=== PATIENT | female | born 1965 | race Hispanic/Latino ===

== ENCOUNTER 2016-11-23 01:08 | Emergency (ER) | payer SELFPAY ==
--- NOTE | 2016-11-23 03:26 | Cat Scan Report ---
FINAL REPORT PROCEDURE: CT LUMBAR SPINE WO CON TECHNIQUE: Computerized axial tomography of the lumbar spine was performed from T12 to the sacrum without contrast material. HISTORY: back pain , rt leg pain COMPARISON: No prior studies are available for comparison. FINDINGS: There are no compression fractures. There is grade 1 anterior spondylolisthesis of L4 over L5 with bilateral facet hypertrophy. There is moderate loss of disc height and diffuse disc bulging causing mild spinal stenosis and severe bilateral lateral recess stenosis. There is severe bilateral foraminal stenosis. There is mild loss of disc height and diffuse disc bulging. There is no significant spinal stenosis. Facet joints are intact. There is mild bilateral foraminal stenosis. Sacrum and sacroiliac joints are intact. The paraspinal soft tissues are unremarkable. IMPRESSION: There are degenerative changes as described. There is no fracture. At L4-5 there is severe bilateral lateral recess stenosis and foraminal stenosis.
--- NOTE | 2016-11-23 04:14 | XRay Report ---
FINAL REPORT PROCEDURE: XR HIP 2-3V RT TECHNIQUE: RIGHT hip radiographs, AP and lateral views. HISTORY: pain, send for report/RT HIP COMPARISON: No prior studies are available for comparison. FINDINGS: Fracture (s) and/or Dislocation(s): None . Joint space(s): Normal . Soft tissues: Normal . Bone mineralization: Normal . Foreign bodies: None . IMPRESSION: Normal Examination.
[2016-11-23] MEDS ORDERED: NORCO 5/325 PO ONE ×2 (05:03→05:05)
--- NOTE | 2016-11-23 05:03 | Emergency Department Report ---
HPI - General Chief Complaint: Extremity Injury, Lower Time Seen by Provider: 11/23/16 04:42 - HPI HPI: 51-year-old female past medical history degenerative disc disease presents with complaint of 2 weeks of lower back pain. Patient states that she has multiple herniated disks and suffers from sciatica. Patient is fully ambulatory denies any bladder or bowel incontinence denies any saddle paresthesias primarily complaining of pain in her lower back. Some occasional radiation into her right buttock and right upper thigh. Patient denies any paralysis. Is voiding urine and feces upon command. Fully ambulatory during my clinical interview. Denies any recent trauma no falls. Denies any dysuria denies any flank pain denies any increased urinary frequency or foul-smelling urine. States her complaints is classic of her chronic lower back pain. States she has not followed up with orthopedics or pain management because of insurance issues. ED Past Medical Hx - Past Medical History Previous Medical History?: Yes Additional medical history: Degenerative Disk Disease x 1 year. Rt Knee Inj x 15 years - Surgical History Past Surgical History?: Yes Hx Cholecystectomy: Yes - Social History Smoking Status: Current Every Day Smoker Substance Use Type: None - Medications Home Medications: Home Medications Medication Instructions Recorded Confirmed Last Taken Type HYDROcodone/APAP 5-325 [[place] 1 each PO Q6HR PRN #10 tablet 11/23/16 Unknown Rx 5/325] Naproxen [Naprosyn TAB] 375 mg PO BID PRN #20 tablet 11/23/16 Unknown Rx ED Review of Systems ROS: Stated complaint: BACK/R KNEE/LEG/HIP PAIN Other details as noted in HPI Constitutional: denies: chills, fever Eyes: denies: eye pain, eye discharge, vision change ENT: denies: ear pain, throat pain Respiratory: denies: cough, shortness of breath, wheezing Cardiovascular: denies: chest pain, palpitations Endocrine: no symptoms reported Gastrointestinal: denies: abdominal pain, nausea, diarrhea Genitourinary: denies: urgency, dysuria, discharge Musculoskeletal: back pain (chronic lower back pain and sciatica). denies: joint swelling, arthralgia Skin: denies: rash, lesions Neurological: denies: headache, weakness, paresthesias Psychiatric: denies: anxiety, depression Hematological/Lymphatic: denies: easy bleeding, easy bruising Physical Exam - Physical Exam Vital Signs: Vital Signs 11/23/16 01:15 Temperature 98 F Pulse Rate 75 Respiratory 20 Rate Blood Pressure 155/103 [Right] O2 Sat by Pulse 100 Oximetry General: General: Well appearing, well nourished, in no distress. Oriented x 3, normal mood and affect. Ambulating without difficulty. Head: Normocephalic, atraumatic, no visible or palpable masses, depressions, or scaring. Eyes: Visual acuity intact, conjunctiva clear, sclera non-icteric, EOM intact, PERRLA Neck: Supple, without lesions, bruits, or adenopathy, thyroid non-enlarged and non-tender Heart: No cardiomegaly or thrills; regular rate and rhythm, no murmur or gallop Lungs: Clear to auscultationb/l Abdomen: Bowel sounds normal, no tenderness, organomegaly, masses, or hernia Back: NO MIDLINE TENDERNESS. Spine normal without deformity or tenderness, no CVA tenderness Rectal: Normal sphincter tone Extremities: No amputations or deformities, cyanosis, edema or varicosities, peripheral pulses intact Musculoskeletal: Normal gait and station. + SLR test right leg 30degrees, negative left leg Neurologic: CN 2-12 normal. Sensation to pain, touch, and proprioception normal. DTRs normal in upper and lower extremities. No pathologic reflexes. distal knee jerk and ankle reflex intact b/l ED Course Vital Signs 11/23/16 01:15 Temperature 98 F Pulse Rate 75 Respiratory 20 Rate Blood Pressure 155/103 [Right] O2 Sat by Pulse 100 Oximetry ED Medical Decision Making - Medical Decision Making a/p: Chronic lower back pain, sciatica, lumbar radiculopathy 1- no clinical signs of cord compression, rectal tone intact, distal reflexes intact, strength 5 out of 5 all extremities including lower extremities. Patient is fully ambulatory. No clinical signs of cauda equina 2- short course of analgesics and referral to orthopedics and primary care 3- CT ordered by triage consistent with degenerative disc disease in the L- spine region, hip x-ray unremarkable Critical care attestation.: If time is entered above; I have spent that time in minutes in the direct care of this critically ill patient, excluding procedure time. ED Disposition Clinical Impression: Lumbar radiculopathy Sciatica Qualifiers: Laterality: right Qualified Code(s): M54.31 - Sciatica, right side Disposition: DC-01 TO HOME OR SELFCARE Is pt being admited?: No Does the pt Need Aspirin: No Condition: Stable Instructions: Sciatica (ED), Lumbar Radiculopathy (ED), Degenerative Disc Disease (ED) Additional Instructions: [email or web address] Prescriptions: HYDROcodone/APAP 5-325 [[place] 5/325] 1 each PO Q6HR PRN #10 tablet PRN Reason: Pain Naproxen [Naprosyn TAB] 375 mg PO BID PRN #20 tablet PRN Reason: Pain Referrals: JOSE ELIAS GONZALEZ MD [Staff Physician] - 3-[address] [facility] [Provider Group] - 3-5 Days Forms: Work/School Release Form(ED) Time of Disposition: 05:45
[2016-11-23] MEDS ORDERED: NORCO 10/325 PO ONE (05:05)
[2016-11-23] MEDS ORDERED: ZOFRAN ODT PO ONE (05:06)
[2016-11-23 06:13] VITALS: BP 154/94
== END 2016-11-23 06:21 | disposition home or self-care (01) ==
LOC: ED 01:08
DX: M54.16 Radiculopathy, lumbar region (principal); M54.31 Sciatica, right side; F17.200 Nicotine dependence, unspecified, uncomplicated
CPT/HCPCS: 72131; 99284; Q0162

== ENCOUNTER 2017-01-13 00:14 | Inpatient (IN) | payer OTHER ==
[2017-01-13] MEDS ORDERED: NACL 0.9% 1000 ML 1,000 ML ONE (01:49)
[2017-01-13] MEDS ORDERED: NACL 0.9% 1000 ML 1,000 ML IV ONE ×4 (01:49→03:54)
[2017-01-13 02:07] LABS: Urine Drugs of Abuse Note Disclamer
[2017-01-13 02:18] LABS: Bilirubin,Urine NEG (Negative); Blood,Urine SM (Negative); Ketones,Urine NEG (Negative); Leukocyte Esterase,Urine NEG (Negative); Nitrite,Urine NEG (Negative); Protein,Urine <15 mg/dL mg/dL (Negative); RBC,Urine < 1.0 /HPF (0.0-6.0); Urobilinogen,Urine < 2.0 mg/dL (<2.0); WBC,Urine < 1.0 /HPF (0.0-6.0)
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
[2017-01-13 03:42] LABS: Hemoglobin 12.1 gm/dl (10.1-14.3); Mean Corpuscular HGB Conc 34 % (30-34); Mean Corpuscular Hemoglobin 31 pg (28-32); Mean Corpuscular Volume 91 fl (79-97); Platelet Count 231 K/mm3 (140-440); Red Blood Count 3.95 M/mm3 (3.65-5.03); Red Cell Distribution Width 13.2 % (13.2-15.2); White Blood Count 4.5 K/mm3 (4.5-11.0)
[2017-01-13 04:02] LABS: Creatine Kinase MB 1.8 ng/mL (0.0-4.0)
[2017-01-13 04:03] LABS: Alanine Aminotransferase 11 units/L (7-56); Albumin 3.7 g/dL (3.9-5); Albumin/Globulin Ratio 1.8 %; Alkaline Phosphatase 46 units/L (35-129); Anion Gap 21 mmol/L; Blood Urea Nitrogen 3 mg/dL (7-17); Calcium 8.1 mg/dL (8.4-10.2); Carbon Dioxide 20 mmol/L (22-30); Chloride 108.2 mmol/L (98-107); Creatine Kinase 76 units/L (30-135); Glucose 71 mg/dL (65-100); Potassium 3.6 mmol/L (3.6-5.0); Sodium 146 mmol/L (137-145); Total Protein 5.8 g/dL (6.3-8.2)
[2017-01-13 04:15] LABS: Anisocytosis 1+; Basophils % (Manual) 0 % (0.0-1.8); Blastocytes % (Manual) 0 %
[2017-01-13 04:16] LABS: Diff Status Complete
--- NOTE | 2017-01-13 06:23 | Cat Scan Report ---
FINAL REPORT PROCEDURE: CT HEAD/BRAIN WO CON TECHNIQUE: Computerized tomography of the head was performed without contrast material. HISTORY: ams COMPARISON: No prior studies are available for comparison. FINDINGS: Skull and scalp: Normal. Paranasal sinuses: Normal. Ventricles and subarachnoid spaces: Normal. Cerebrum: No evidence of hemorrhage, acute infarction or mass . Cerebellum and brainstem: No evidence of hemorrhage, acute infarction or mass. Vasculature: Normal. Comments: None. IMPRESSION: Normal Examination
--- NOTE | 2017-01-13 07:13 | Admit Criteria Form ---
Admission Criteria Documentation: SUBSTANCE ABUSE Clinical Indications for Admission to Inpatient Care (Place 'X' for any and all applicable criteria): Admission is indicated due to ANY ONE of the following(1)(2)(3)(4)(5): [ ]I. Delirium due to alcohol or sedative A withdrawal B ( Also use Delirium Criteria as appropriate)1,6,7 [ ]II. Alcohol or sedative withdrawal with high-risk indicator as manifested by ALL of the following1,3,6,7 [ ]a) Signs of withdrawal as indicated by ANY ONE of the following: [ ]i) Heart rate greater than 100 beats per minute [ ]ii) Nausea or vomiting [ ]iii) Other physical signs of alcohol or sedative withdrawal [ ]iv) Tremor [ ](v) Increased perspiration [ ]b) Elevated risk due to a historical or comorbid factor as indicated by ANY ONE of the following: [ ]i) History of delirium due to alcohol or sedative withdrawal [ ]ii) History of repetitive seizures due to alcohol or sedative withdrawal C [ ]iii) Intrinsic seizure disorder (epilepsy) [ ]iv) [ ]v) Comorbid medical condition that can be dangerously destabilized by alcohol or sedative withdrawal (eg, severe cardiac disease) [ ]III. Severe alcohol or sedative withdrawal that is unmanageable at lower level of care, as manifested by ALL of the following1,3,6,7 [ ]a) Marked signs of withdrawal as indicated by ANY ONE of the following: [ ]i) Heart rate greater than 120 beats per minute [ ]ii) Vomiting [ ]iii) Grossly visible tremor [ ]iv) Profuse perspiration [ ]v) Temperature greater than 38.3 degrees C (101 degrees F) [ ]vi) Other marked physical signs of alcohol or sedative withdrawal [ ]b) Signs of withdrawal which require inpatient treatment as indicated by ANY ONE of the following: [ ]i) Inadequate response to pharmacotherapy in emergency department or other appropriate lower level of care [ ]ii) Lower level of care not feasible or appropriate (eg, unavailable or inappropriate to patient condition or treatment history) [ ]IV. Severely complicated opioid withdrawal that requires [id number] care as manifested by ALL of the following 1,4,7,11 [ ]a) Vomiting or diarrhea due to opioid withdrawal [ ]b) Marked dehydration or electrolyte abnormality that cannot be corrected (to near normal) in an emergency department or other ambulatory setting (eg, serum K<2.5 mEq/L , serum Na <130 mEq/L [X]V. Acute toxicity or instability from substance use requiring inpatient care (eg, altered mental status, respiratory depression) that has had inadequate response to, or is judged inappropriate for, treatment at lower level of care (eg, emergency department, observation care) [ ]. Other inpatient medical or psychiatric care is needed due to risk or comorbidity as indicated by ALL of the following(18): [ ]a) Treatment is needed because of patient risk due to ANY ONE of the following: [ ]i) Medical condition (eg, severe cardiac disease) that requires 24-hour monitoring and treatment due to danger of destabilization by alcohol or sedative withdrawal is present [ ]ii) Imminent danger to self is present due to ANY ONE of the following(19)(20)(21): [ ]1) Imminent risk for recurrence of Suicide attempt or act of serious Harm to self is present as indicated by ALL of the following: [ ]A. There has been very recent Suicide attempt or deliberate act of serious Harm to self. [ ]B. There has not been Sufficient relief of the factors that precipitated the attempt or act. [ ]2) Current plan for suicide or serious Harm to self is present. [ ]3) Command auditory hallucinations for suicide or serious Harm to self are present. [ ]4) Patient has persistent Thoughts of suicide or serious Harm to self that cannot be adequately monitored at lower level of care due to ANY ONE of the following[E]: [ ]A. Insufficient behavioral care is available to meet patient needs (such as required provider or lower level facility is not available). [ ]B. Patient characteristics such as high impulsivity or unreliability are present. [ ]C. Environment does not support recovery. [ ]D. Ready access to lethal means [ ]iii) Imminent danger to others is present due to ANY ONE of the following(19)(23)(24): [ ]1) Imminent risk for recurrence of attempt to seriously Harm another is present as indicated by ALL of the following: [ ]A. There has been very recent attempt to seriously Harm another. [ ]B. There has not been Sufficient relief of factors that precipitated the attempt or act. [ ]2) Current plan for homicide or serious Harm to another is present. [ ]3) Command auditory hallucinations or paranoid delusions contributing to risk for homicide or serious Harm to another are present. [ ]4) Patient has persistent thoughts of homicide or serious Harm to another that cannot be adequately monitored at lower level of care because of ANY ONE of the following[E]: [ ]A. Insufficient behavioral care is available to meet patient needs (such as required provider or lower level facility is not available). [ ]B. High impulsivity or unreliability is present. [ ]C. Environment does not support recovery. [ ]D. Ready access to lethal means [ ]iv) Severe dysfunction in daily living related to substance use disorder as indicated by ANY ONE of the following(33): [ ]a) Extreme deterioration in social interactions (eg , threatening behaviors with little or no provocation) [ ]b) Complete withdrawal from all social interactions [ ]c) Complete neglect of self-care with associated impairment in physical status [ ]d) Extreme disruption in vegetative function (eg, life-sustaining functions such as eating) [ ]e) Complete inability to maintain any appropriate aspect of personal responsibility in any adult roles (eg, occupational, parental ) [ ]v) Other emotional, behavioral, or cognitive symptoms of sufficient severity to preclude ability to engage in recovery without 24-hour monitoring and treatment are present. [ ]vi) Patient requires monitoring due to substance use in combination with medical, psychiatric, or environmental factors that prevent adequate management at lower level of care as indicated by ALL of the following: [ ]1) Significant substance use effects, medical conditions, or psychiatric comorbidities are present as indicated by ANY ONE of the following [ ]A. Substance toxicity or withdrawal requires medical monitoring. [ ]B. Medical comorbidity requires medical monitoring for destabilization due to alcohol or sedative withdrawal. [ ]C. Emotional, behavioral, or cognitive symptoms of sufficient severity to limit or preclude ability to engage in treatment are present. [ ]2) Conditions, barriers, or environmental factors preventing treatment at lower level of care are present as indicated by ANY ONE of the following: [ ]A. Psychiatric comorbidity or opposition to treatment requires 24-hour setting to ensure adherence with medical treatment or adequate motivating interventions. [ ]B. Severe behavioral problems (eg, escalating relapse behaviors, acute psychiatric or substance use crisis, inability to recognize signs and symptoms of relapse ) require 24-hour setting for relapse prevention.[F] [ ]C. Living environment outside of 24-hour setting prevents recovery (eg, abuse, victimization, patient inability to cope). [ ]b Treatment situation and needs are appropriate for inpatient level ( instead of using lower level of care) as indicated by ANY ONE of the following( 25)(26)(27): [ ]i) Patient is unwilling to participate voluntarily and requires treatment (eg, legal commitment) in involuntary unit.(23) [ ]ii) Voluntary treatment at lower level is not feasible (eg, lower level care unavailable or inappropriate for patient condition). [ ]iii) Physical restraint, seclusion, or other involuntary control is needed (eg, actively violent patient for whom treatment in an involuntary unit is deemed necessary in accord with applicable medical and legal criteria).(23) [ ]iv) [id number] medical or nursing care to address symptoms and initiate interventions is required; specific need is identified. Extended stay beyond goal length of stay may be needed for: [ ]a) Onset of delirium [ ]b) Recurrent seizures [ ]c) Persistent severe alcohol or sedative withdrawal [ ]d) Persistent dangerous behavior The original [facility] content created by [employer] has been revised. The portions of the content which have been revised are identified through the use of italic text or in bold, and [facility] has neither reviewed nor approved the modified material. All other unmodified content is copyright [facility]. Please see references footnoted in the original [facility] [employer] edition 2016 Admission Criteria Met: Yes
--- NOTE | 2017-01-13 08:44 | History and Physical Report ---
History of Present Illness Date of examination: 01/13/17 Date of admission: 01/13/17 04:40 Chief complaint: Alerted mental status History of present illness: Patient 51-year-old female with past medical history degenerative disc disease presents to the hospital after being found crawling around in the [place] covered in blood. Patient alert but confused, therefore unable to obtain history. Patient admits to use of unprescribed Xanax and Trazodone. Also admits to use of alcohol with combination of those drugs. History obtained from ER physician Past History Past Medical History: other (unable to assess) Past Surgical History: Other (JING (patient altered mental status)) Family history: other (JING (patient altered mental status)) Medications and Allergies Allergies Allergy/AdvReac Type Severity Reaction Status Date / Time No Known Allergies Allergy Verified 01/13/17 01:18 Home Medications Medication Instructions Recorded Confirmed Last Taken Type HYDROcodone/APAP 5-325 [[place] 1 each PO Q6HR PRN #10 tablet 11/23/16 01/13/17 Unknown Rx 5/325] Naproxen [Naprosyn TAB] 375 mg PO BID PRN #20 tablet 11/23/16 01/13/17 Unknown Rx Review of Systems ROS unobtainable: due to mental status (JING (patient altered mental status)) Exam - Constitutional Vitals: Temp Pulse Resp BP Pulse Ox 70 13 93/60 98 01/13/17 06:30 01/13/17 06:30 01/13/17 06:30 01/13/17 06:30 General appearance: Present: no acute distress, other (alert but confused ) - EENT Eyes: Present: PERRL ENT: hearing intact - Neck Neck: Present: supple - Respiratory Respiratory effort: normal Respiratory: bilateral: CTA - Cardiovascular Rhythm: regular Heart Sounds: Present: S1 & S2 Peripheral Pulses: within normal limits - Abdominal General gastrointestinal: Present: soft, non-tender Female genitourinary: Present: deferred - Rectal Rectal Exam: deferred - Integumentary Integumentary: Present: clear, warm, dry - Musculoskeletal Musculoskeletal: strength equal bilaterally - Neurologic Neurologic: CNII-XII intact - Allied Health Allied health notes reviewed: nursing Results - Labs CBC & Chem 7: 01/14/17 05:22 01/14/17 05:22 Labs: Laboratory Last Values WBC 4.5 K/mm3 (4.5-11.0) 01/13/17 02:57 RBC 3.95 M/mm3 (3.65-5.03) 01/13/17 02:57 Hgb 12.1 gm/dl (10.1-14.3) 01/13/17 02:57 Hct 36.0 % (30.3-42.9) 01/13/17 02:57 MCV 91 fl (79-97) 01/13/17 02:57 MCH 31 pg (28-32) 01/13/17 02:57 MCHC 34 % (30-34) 01/13/17 02:57 RDW 13.2 % (13.2-15.2) 01/13/17 02:57 Plt Count 231 K/mm3 (140-440) 01/13/17 02:57 Lymph % (Auto) Transfer Professor 01/13/17 02:57 Add Manual Diff Complete 01/13/17 02:57 Total Counted 100 01/13/17 02:57 Seg Neutrophils % Transfer Professor 01/13/17 02:57 Seg Neuts % (Manual) 34.0 % (40.0-70.0) L 01/13/17 02:57 Band Neutrophils % 8.0 % 01/13/17 02:57 Lymphocytes % (Manual) 54.0 % (13.4-35.0) H 01/13/17 02:57 Reactive Lymphs % (Man) 0 % 01/13/17 02:57 Monocytes % (Manual) 2.0 % (0.0-7.3) 01/13/17 02:57 Eosinophils % (Manual) 2.0 % (0.0-4.3) 01/13/17 02:57 Basophils % (Manual) 0 % (0.0-1.8) 01/13/17 02:57 Metamyelocytes % 0 % 01/13/17 02:57 Myelocytes % 0 % 01/13/17 02:57 Promyelocytes % 0 % 01/13/17 02:57 Blast Cells % 0 % 01/13/17 02:57 Nucleated RBC % Not Reportable 01/13/17 02:57 Seg Neutrophils # Man 1.5 K/mm3 (1.8-7.7) L 01/13/17 02:57 Band Neutrophils # 0.4 K/mm3 01/13/17 02:57 Lymphocytes # (Manual) 2.4 K/mm3 (1.2-5.4) 01/13/17 02:57 Abs React Lymphs (Man) 0.0 K/mm3 01/13/17 02:57 Monocytes # (Manual) 0.1 K/mm3 (0.0-0.8) 01/13/17 02:57 Eosinophils # (Manual) 0.1 K/mm3 (0.0-0.4) 01/13/17 02:57 Basophils # (Manual) 0.0 K/mm3 (0.0-0.1) 01/13/17 02:57 Metamyelocytes # 0.0 K/mm3 01/13/17 02:57 Myelocytes # 0.0 K/mm3 01/13/17 02:57 Promyelocytes # 0.0 K/mm3 01/13/17 02:57 Blast Cells # 0.0 K/mm3 01/13/17 02:57 WBC Morphology Not Reportable 01/13/17 02:57 Hypersegmented Neuts Not Reportable 01/13/17 02:57 Hyposegmented Neuts Not Reportable 01/13/17 02:57 Hypogranular Neuts Not Reportable 01/13/17 02:57 Smudge Cells Not Reportable 01/13/17 02:57 Toxic Granulation Not Reportable 01/13/17 02:57 Toxic Vacuolation Not Reportable 01/13/17 02:57 Dohle Bodies Not Reportable 01/13/17 02:57 Pelger-Huet Anomaly Not Reportable 01/13/17 02:57 Valerie Rods Not Reportable 01/13/17 02:57 Platelet Estimate Appears normal 01/13/17 02:57 Clumped Platelets Not Reportable 01/13/17 02:57 Plt Clumps, EDTA Not Reportable 01/13/17 02:57 Large Platelets Not Reportable 01/13/17 02:57 Giant Platelets Not Reportable 01/13/17 02:57 Platelet Satelliting Not Reportable 01/13/17 02:57 Plt Morphology Comment Not Reportable 01/13/17 02:57 RBC Morphology Not Reportable 01/13/17 02:57 Dimorphic RBCs Not Reportable 01/13/17 02:57 Polychromasia Not Reportable 01/13/17 02:57 Hypochromasia Not Reportable 01/13/17 02:57 Poikilocytosis Not Reportable 01/13/17 02:57 Anisocytosis 1+ 01/13/17 02:57 Microcytosis Not Reportable 01/13/17 02:57 Macrocytosis Not Reportable 01/13/17 02:57 Spherocytes Not Reportable 01/13/17 02:57 Pappenheimer Bodies Not Reportable 01/13/17 02:57 Sickle Cells Not Reportable 01/13/17 02:57 Target Cells Not Reportable 01/13/17 02:57 Tear Drop Cells Not Reportable 01/13/17 02:57 Ovalocytes Not Reportable 01/13/17 02:57 Helmet Cells Not Reportable 01/13/17 02:57 [place] Bodies Not Reportable 01/13/17 02:57 [place] Rings Not Reportable 01/13/17 02:57 Wan Cells Not Reportable 01/13/17 02:57 Bite Cells Not Reportable 01/13/17 02:57 Crenated Cell Not Reportable 01/13/17 02:57 Elliptocytes Not Reportable 01/13/17 02:57 Acanthocytes (Spur) Not Reportable 01/13/17 02:57 Rouleaux Not Reportable 01/13/17 02:57 Hemoglobin C Crystals Not Reportable 01/13/17 02:57 Schistocytes Not Reportable 01/13/17 02:57 Malaria parasites Not Reportable 01/13/17 02:57 [place] Bodies Not Reportable 01/13/17 02:57 Hem Pathologist Commnt No 01/13/17 02:57 VBG pH 7.322 (7.320-7.420) 01/13/17 02:57 Sodium 146 mmol/L (137-145) H 01/13/17 02:57 Potassium 3.6 mmol/L (3.6-5.0) 01/13/17 02:57 Chloride 108.2 mmol/L (98-107) H 01/13/17 02:57 Carbon Dioxide 20 mmol/L (22-30) L 01/13/17 02:57 Anion Gap 21 mmol/L 01/13/17 02:57 BUN 3 mg/dL (7-17) L 01/13/17 02:57 Creatinine 0.5 mg/dL (0.7-1.2) L 01/13/17 02:57 Estimated GFR > 60 ml/min 01/13/17 02:57 BUN/Creatinine Ratio 6.00 % 01/13/17 02:57 Glucose 71 mg/dL (65-100) 01/13/17 02:57 Lactic Acid 3.50 mmol/L (0.7-2.0) H* 01/13/17 02:57 Calcium 8.1 mg/dL (8.4-10.2) L 01/13/17 02:57 Magnesium 1.70 mg/dL (1.7-2.3) 01/13/17 02:57 Total Bilirubin 0.30 mg/dL (0.1-1.2) 01/13/17 02:57 AST 12 units/L (5-40) 01/13/17 02:57 ALT 11 units/L (7-56) 01/13/17 02:57 Alkaline Phosphatase 46 units/L (35-129) 01/13/17 02:57 Total Creatine Kinase 76 units/L (30-135) 01/13/17 02:57 CK-MB (CK-2) 1.8 ng/mL (0.0-4.0) 01/13/17 02:57 CK-MB (CK-2) Rel Index 2.3 (0-4) 01/13/17 02:57 Troponin T < 0.010 ng/mL (0.00-0.029) 01/13/17 02:57 Total Protein 5.8 g/dL (6.3-8.2) L 01/13/17 02:57 Albumin 3.7 g/dL (3.9-5) L 01/13/17 02:57 Albumin/Globulin Ratio 1.8 % 01/13/17 02:57 Urine Color Colorless (Yellow) 01/13/17 01:18 Urine Turbidity Clear (Clear) 01/13/17 01:18 Urine pH 6.0 (5.0-7.0) 01/13/17 01:18 Ur Specific [place] 1.002 (1.003-1.030) L 01/13/17 01:18 Urine Protein <15 mg/dl mg/dL (Negative) 01/13/17 01:18 Urine Glucose (UA) Neg mg/dL (Negative) 01/13/17 01:18 Urine Ketones Neg mg/dL (Negative) 01/13/17 01:18 Urine Blood Sm (Negative) 01/13/17 01:18 Urine Nitrite Neg (Negative) 01/13/17 01:18 Urine Bilirubin Neg (Negative) 01/13/17 01:18 Urine Urobilinogen < 2.0 mg/dL (<2.0) 01/13/17 01:18 Ur Leukocyte Esterase Neg (Negative) 01/13/17 01:18 Urine WBC (Auto) < 1.0 /HPF (0.0-6.0) 01/13/17 01:18 Urine RBC (Auto) < 1.0 /HPF (0.0-6.0) 01/13/17 01:18 U Epithel Cells (Auto) < 1.0 /HPF (0-13.0) 01/13/17 01:18 Salicylates < 0.3 mg/dL (2.8-20.0) L 01/13/17 02:54 Urine Opiates Screen Presumptive negative 01/13/17 01:18 Urine Methadone Screen Presumptive negative 01/13/17 01:18 Acetaminophen < 15.0 ug/mL (10.0-30.0) 01/13/17 02:54 Ur Barbiturates Screen Presumptive negative 01/13/17 01:18 Ur Phencyclidine Scrn Presumptive negative 01/13/17 01:18 Ur Amphetamines Screen Presumptive positive 01/13/17 01:18 U Benzodiazepines Scrn Presumptive negative 01/13/17 01:18 Urine Cocaine Screen Presumptive negative 01/13/17 01:18 U Marijuana (THC) Screen Presumptive negative 01/13/17 01:18 Drugs of Abuse Note Disclamer 01/13/17 01:18 Plasma/Serum Alcohol 0.22 gm% (0-0.07) H 01/13/17 02:06 Assessment and Plan Assessment and plan: Metabolic Encephalopathy Most likely due to alcohol Unremarkable CT of the head IV fluid hydration Hypotension Most likely due to hydration IV fluid hydration Closely monitor blood pressure Lactic acidosis Most likely secondary to alcohol We will repeat lactic acid Alcohol use Elevated ammonia level Patient alcohol plasma serum is 0.22H [facility] protocol initiated Alcohol use counseling will be given when patient become alert and oriented Drug abuse Patient urine drug screen positive for Amphetamine Alcohol use counseling will be given when patient become alert and oriented DVT prophylaxis Lovenox Advance Directives: Yes VTE prophylaxis?: Chemical Contraindication Mechanical VTE Prophylaxis: Treatment Not Indicated Plan of care discussed with patient/family: Yes
[2017-01-13] MEDS ORDERED: ZOFRAN IM PRN (08:49)
[2017-01-13] MEDS ORDERED: ZOFRAN IV PRN ×2 (09:00→15:39)
[2017-01-13] MEDS ORDERED: TYLENOL PO PRN ×2 (09:30→15:39)
[2017-01-13] MEDS: NACL 0.9% 1000 ML 1,000 ML IV SCH ×2 (09:47→21:49)
[2017-01-13] MEDS ORDERED: DULCOLAX PR PRN ×2 (10:00→15:39)
[2017-01-13] MEDS ORDERED: ATIVAN IV PRN (14:09)
[2017-01-13] MEDS ORDERED: HALDOL IV PRN (14:09)
[2017-01-13] MEDS ORDERED: MILK OF MAGNESIA PO PRN (15:39)
[2017-01-13] MEDS ORDERED: LOVENOX SUB-Q SCH (22:00)
[2017-01-14 05:53] LABS: Basophils % (Auto) 0.5 % (0.0-1.8); Hematocrit 36.7 % (30.3-42.9); Hemoglobin 12.2 gm/dl (10.1-14.3); Mean Corpuscular HGB Conc 33 % (30-34); Mean Corpuscular Hemoglobin 30 pg (28-32); Mean Corpuscular Volume 91 fl (79-97); Platelet Count 244 K/mm3 (140-440); Red Blood Count 4.03 M/mm3 (3.65-5.03); Red Cell Distribution Width 13.3 % (13.2-15.2); White Blood Count 5.5 K/mm3 (4.5-11.0)
[2017-01-14 06:13] LABS: Anion Gap 16 mmol/L; Blood Urea Nitrogen 6 mg/dL (7-17); Calcium 8.3 mg/dL (8.4-10.2); Carbon Dioxide 23 mmol/L (22-30); Chloride 109.6 mmol/L (98-107); Glucose 85 mg/dL (65-100); Potassium 3.6 mmol/L (3.6-5.0); Sodium 145 mmol/L (137-145)
--- NOTE | 2017-01-14 08:03 | Progress Note ---
Hospitalist Physical - Constitutional Vitals: Temp Pulse Resp BP Pulse Ox 98.7 F 71 18 113/65 96 01/13/17 20:24 01/13/17 20:24 01/13/17 20:24 01/13/17 20:24 01/13/17 22:00 General appearance: Present: no acute distress, other (alert but confused ) Results - Labs CBC & Chem 7: 01/14/17 05:22 01/14/17 05:22 Labs: Laboratory Last Values WBC 5.5 K/mm3 (4.5-11.0) 01/14/17 05:22 RBC 4.03 M/mm3 (3.65-5.03) 01/14/17 05:22 Hgb 12.2 gm/dl (10.1-14.3) 01/14/17 05:22 Hct 36.7 % (30.3-42.9) 01/14/17 05:22 MCV 91 fl (79-97) 01/14/17 05:22 MCH 30 pg (28-32) 01/14/17 05:22 MCHC 33 % (30-34) 01/14/17 05:22 RDW 13.3 % (13.2-15.2) 01/14/17 05:22 Plt Count 244 K/mm3 (140-440) 01/14/17 05:22 Lymph % (Auto) 46.4 % (13.4-35.0) H 01/14/17 05:22 [place] % (Auto) 5.3 % (0.0-7.3) 01/14/17 05:22 Eos % (Auto) 5.0 % (0.0-4.3) H 01/14/17 05:22 Baso % (Auto) 0.5 % (0.0-1.8) 01/14/17 05:22 Lymph # 2.6 K/mm3 (1.2-5.4) 01/14/17 05:22 [place] # 0.3 K/mm3 (0.0-0.8) 01/14/17 05:22 Eos # 0.3 K/mm3 (0.0-0.4) 01/14/17 05:22 Baso # 0.0 K/mm3 (0.0-0.1) 01/14/17 05:22 Add Manual Diff Complete 01/13/17 02:57 Total Counted 100 01/13/17 02:57 Seg Neutrophils % 42.8 % (40.0-70.0) 01/14/17 05:22 Seg Neuts % (Manual) 34.0 % (40.0-70.0) L 01/13/17 02:57 Band Neutrophils % 8.0 % 01/13/17 02:57 Lymphocytes % (Manual) 54.0 % (13.4-35.0) H 01/13/17 02:57 Reactive Lymphs % (Man) 0 % 01/13/17 02:57 Monocytes % (Manual) 2.0 % (0.0-7.3) 01/13/17 02:57 Eosinophils % (Manual) 2.0 % (0.0-4.3) 01/13/17 02:57 Basophils % (Manual) 0 % (0.0-1.8) 01/13/17 02:57 Metamyelocytes % 0 % 01/13/17 02:57 Myelocytes % 0 % 01/13/17 02:57 Promyelocytes % 0 % 01/13/17 02:57 Blast Cells % 0 % 01/13/17 02:57 Nucleated RBC % Not Reportable 01/13/17 02:57 Seg Neutrophils # 2.4 K/mm3 (1.8-7.7) 01/14/17 05:22 Seg Neutrophils # Man 1.5 K/mm3 (1.8-7.7) L 01/13/17 02:57 Band Neutrophils # 0.4 K/mm3 01/13/17 02:57 Lymphocytes # (Manual) 2.4 K/mm3 (1.2-5.4) 01/13/17 02:57 Abs React Lymphs (Man) 0.0 K/mm3 01/13/17 02:57 Monocytes # (Manual) 0.1 K/mm3 (0.0-0.8) 01/13/17 02:57 Eosinophils # (Manual) 0.1 K/mm3 (0.0-0.4) 01/13/17 02:57 Basophils # (Manual) 0.0 K/mm3 (0.0-0.1) 01/13/17 02:57 Metamyelocytes # 0.0 K/mm3 01/13/17 02:57 Myelocytes # 0.0 K/mm3 01/13/17 02:57 Promyelocytes # 0.0 K/mm3 01/13/17 02:57 Blast Cells # 0.0 K/mm3 01/13/17 02:57 WBC Morphology Not Reportable 01/13/17 02:57 Hypersegmented Neuts Not Reportable 01/13/17 02:57 Hyposegmented Neuts Not Reportable 01/13/17 02:57 Hypogranular Neuts Not Reportable 01/13/17 02:57 Smudge Cells Not Reportable 01/13/17 02:57 Toxic Granulation Not Reportable 01/13/17 02:57 Toxic Vacuolation Not Reportable 01/13/17 02:57 Dohle Bodies Not Reportable 01/13/17 02:57 Pelger-Huet Anomaly Not Reportable 01/13/17 02:57 Valerie Rods Not Reportable 01/13/17 02:57 Platelet Estimate Appears normal 01/13/17 02:57 Clumped Platelets Not Reportable 01/13/17 02:57 Plt Clumps, EDTA Not Reportable 01/13/17 02:57 Large Platelets Not Reportable 01/13/17 02:57 Giant Platelets Not Reportable 01/13/17 02:57 Platelet Satelliting Not Reportable 01/13/17 02:57 Plt Morphology Comment Not Reportable 01/13/17 02:57 RBC Morphology Not Reportable 01/13/17 02:57 Dimorphic RBCs Not Reportable 01/13/17 02:57 Polychromasia Not Reportable 01/13/17 02:57 Hypochromasia Not Reportable 01/13/17 02:57 Poikilocytosis Not Reportable 01/13/17 02:57 Anisocytosis 1+ 01/13/17 02:57 Microcytosis Not Reportable 01/13/17 02:57 Macrocytosis Not Reportable 01/13/17 02:57 Spherocytes Not Reportable 01/13/17 02:57 Pappenheimer Bodies Not Reportable 01/13/17 02:57 Sickle Cells Not Reportable 01/13/17 02:57 Target Cells Not Reportable 01/13/17 02:57 Tear Drop Cells Not Reportable 01/13/17 02:57 Ovalocytes Not Reportable 01/13/17 02:57 Helmet Cells Not Reportable 01/13/17 02:57 [place] Bodies Not Reportable 01/13/17 02:57 [place] Rings Not Reportable 01/13/17 02:57 Wan Cells Not Reportable 01/13/17 02:57 Bite Cells Not Reportable 01/13/17 02:57 Crenated Cell Not Reportable 01/13/17 02:57 Elliptocytes Not Reportable 01/13/17 02:57 Acanthocytes (Spur) Not Reportable 01/13/17 02:57 Rouleaux Not Reportable 01/13/17 02:57 Hemoglobin C Crystals Not Reportable 01/13/17 02:57 Schistocytes Not Reportable 01/13/17 02:57 Malaria parasites Not Reportable 01/13/17 02:57 Alexander Bodies Not Reportable 01/13/17 02:57 Hem Pathologist Commnt No 01/13/17 02:57 VBG pH 7.322 (7.320-7.420) 01/13/17 02:57 Sodium 145 mmol/L (137-145) 01/14/17 05:22 Potassium 3.6 mmol/L (3.6-5.0) 01/14/17 05:22 Chloride 109.6 mmol/L (98-107) H 01/14/17 05:22 Carbon Dioxide 23 mmol/L (22-30) 01/14/17 05:22 Anion Gap 16 mmol/L 01/14/17 05:22 BUN 6 mg/dL (7-17) L 01/14/17 05:22 Creatinine 0.5 mg/dL (0.7-1.2) L 01/14/17 05:22 Estimated GFR > 60 ml/min 01/14/17 05:22 BUN/Creatinine Ratio 12.00 % 01/14/17 05:22 Glucose 85 mg/dL (65-100) 01/14/17 05:22 Lactic Acid 1.40 mmol/L (0.7-2.0) 01/13/17 09:20 Calcium 8.3 mg/dL (8.4-10.2) L 01/14/17 05:22 Magnesium 1.70 mg/dL (1.7-2.3) 01/13/17 02:57 Total Bilirubin 0.30 mg/dL (0.1-1.2) 01/13/17 02:57 AST 12 units/L (5-40) 01/13/17 02:57 ALT 11 units/L (7-56) 01/13/17 02:57 Alkaline Phosphatase 46 units/L (35-129) 01/13/17 02:57 Ammonia 67.0 umol/L (25-60) H 01/13/17 16:07 Total Creatine Kinase 76 units/L (30-135) 01/13/17 02:57 CK-MB (CK-2) 1.8 ng/mL (0.0-4.0) 01/13/17 02:57 CK-MB (CK-2) Rel Index 2.3 (0-4) 01/13/17 02:57 Troponin T < 0.010 ng/mL (0.00-0.029) 01/13/17 02:57 Total Protein 5.8 g/dL (6.3-8.2) L 01/13/17 02:57 Albumin 3.7 g/dL (3.9-5) L 01/13/17 02:57 Albumin/Globulin Ratio 1.8 % 01/13/17 02:57 Urine Color Colorless (Yellow) 01/13/17 01:18 Urine Turbidity Clear (Clear) 01/13/17 01:18 Urine pH 6.0 (5.0-7.0) 01/13/17 01:18 Ur Specific [place] 1.002 (1.003-1.030) L 01/13/17 01:18 Urine Protein <15 mg/dl mg/dL (Negative) 01/13/17 01:18 Urine Glucose (UA) Neg mg/dL (Negative) 01/13/17 01:18 Urine Ketones Neg mg/dL (Negative) 01/13/17 01:18 Urine Blood Sm (Negative) 01/13/17 01:18 Urine Nitrite Neg (Negative) 01/13/17 01:18 Urine Bilirubin Neg (Negative) 01/13/17 01:18 Urine Urobilinogen < 2.0 mg/dL (<2.0) 01/13/17 01:18 Ur Leukocyte Esterase Neg (Negative) 01/13/17 01:18 Urine WBC (Auto) < 1.0 /HPF (0.0-6.0) 01/13/17 01:18 Urine RBC (Auto) < 1.0 /HPF (0.0-6.0) 01/13/17 01:18 U Epithel Cells (Auto) < 1.0 /HPF (0-13.0) 01/13/17 01:18 Salicylates < 0.3 mg/dL (2.8-20.0) L 01/13/17 02:54 Urine Opiates Screen Presumptive negative 01/13/17 01:18 Urine Methadone Screen Presumptive negative 01/13/17 01:18 Acetaminophen < 15.0 ug/mL (10.0-30.0) 01/13/17 02:54 Ur Barbiturates Screen Presumptive negative 01/13/17 01:18 Ur Phencyclidine Scrn Presumptive negative 01/13/17 01:18 Ur Amphetamines Screen Presumptive positive 01/13/17 01:18 U Benzodiazepines Scrn Presumptive negative 01/13/17 01:18 Urine Cocaine Screen Presumptive negative 01/13/17 01:18 U Marijuana (THC) Screen Presumptive negative 01/13/17 01:18 Drugs of Abuse Note Disclamer 01/13/17 01:18 Plasma/Serum Alcohol 0.22 gm% (0-0.07) H 01/13/17 02:06
[2017-01-14 08:46] VITALS: BP 108/60
[2017-01-14] MEDS: NACL 0.9% 1000 ML 1,000 ML IV SCH (09:36)
--- NOTE | 2017-01-14 14:23 | Discharge Summary ---
Providers - Providers Date of Admission: 01/13/17 04:40 Date of discharge: 01/14/17 Attending physician: JOSEPH PRABHAKAR 01/13/17 14:59 Consult to Mental Health [CONS] Routine Reason For Exam: Drug abuse Place consult to:: yes Notified:: YES Primary care physician: [facility] [employer] Hospitalization Condition: Good Hospital course: Patient 51-year-old female with past medical history degenerative disc disease presents to the hospital after being found crawling around in the [place] covered in blood. She states someone was chasing her and therefore she ran into the dodd. She complains of chronic lower back pain secondary to lumbar stenosis. Patient admits to using Xanax and trazodone as well this evening but states they are not prescribed to her. Patient was diagnosed with Metabolic Encephalopathy, Hypotension, Lactic acidosis, Alcohol use and Polysubstance abuse. Unremarkable CT of the head, Patient mental status improved, currently alert oriented to person,place and time. She was treated with IV fluid hydration and all her lab works was negative. Patient does not has suicidal tendencies and she is cleared by mental health.Patient is clinically improved and stable for discharge. Patient positive for Amphetamine. Polysubstance abuse counseling done patient to stop recreational drugs. Also Alcohol abuse counseling done, I have again instructed her and need to avoid alcohol use and possibly a role in AA for which the patient verbalized understanding. Patient advised to follow-up with her primary care provider. Discharge Diagnosed Metabolic Encephalopathy Hypotension Lactic acidosis Alcohol use Polysubstance abuse Disposition: DC-01 TO HOME OR SELFCARE Time spent for discharge: 32 minutes Core Measure Documentation - Palliative Care Palliative Care/ Comfort Measures: Not Applicable - Core Measures Any of the following diagnoses?: none Exam - Constitutional Vitals: Temp Pulse Resp BP Pulse Ox 98.5 F 72 16 108/60 97 01/14/17 08:00 01/14/17 08:00 01/14/17 08:00 01/14/17 08:00 01/14/17 08:00 General appearance: Present: no acute distress - EENT Eyes: Present: PERRL ENT: hearing intact - Neck Neck: Present: supple - Respiratory Respiratory effort: normal Respiratory: bilateral: CTA - Cardiovascular Heart rate: 72 Rhythm: regular Heart Sounds: Present: S1 & S2 - Extremities Extremities: no ischemia Peripheral Pulses: within normal limits - Abdominal General gastrointestinal: Present: soft, non-tender - Rectal Rectal Exam: deferred - Integumentary Integumentary: Present: clear, warm, dry - Musculoskeletal Musculoskeletal: strength equal bilaterally - Psychiatric Psychiatric: appropriate mood/affect - Neurologic Neurologic: CNII-XII intact - Allied Health Allied health notes reviewed: nursing Plan Activity: no restrictions Weight Bearing Status: Weight Bear as Tolerated Follow up with: PRIMARY CARE, [Primary Care Provider] - 7 Days Prescriptions: HYDROcodone/APAP 5-325 [[place] 5-325 mg TAB] 1 each PO Q6HR PRN #10 tablet PRN Reason: Pain
== END 2017-01-14 15:55 | disposition home or self-care (01) | DRG 71 ==
LOC: ED 00:14 → 3A 04:40
PROVIDERS: ADMIT Internal Medicine; ATTEND Hospitalist
DX: G93.41 Metabolic encephalopathy (principal); E87.2 Acidosis; F10.929 Alcohol use, unspecified with intoxication, unspecified; F19.10 Other psychoactive substance abuse, uncomplicated; I95.9 Hypotension, unspecified; F15.10 Other stimulant abuse, uncomplicated; M19.90 Unspecified osteoarthritis, unspecified site; Z71.89 Other specified counseling
CPT/HCPCS: 36415; 70450; 80048; 80053; 80307; 80320; 81001; 82140; 82550; 82553; 82805; 83735; 84484; 85007; 85025; 87040; 93005; 93010; 99406; G0480; J1650; J7030